=== PATIENT | female | born 1940 | race Caucasian/White ===

== ENCOUNTER 2021-01-09 21:08 | Inpatient (IN) | payer MEDICARE ==
[~2021-01-09] VITALS: Ht 167.6 cm; Wt 77.1 kg
--- NOTE | 2021-01-09 21:30 | NUR ---
Pt bibra c/o rt shoulder and rt lower back pain when she breathes in or moves. Pt aaox4 breathing evenly, but painful on expiration. Pt states that she fell today, but "I fall all the time." Upon assessment, skin is warm and dry, but small abrasion noted on left forearm. Pt attached to monitor and pox. Pt given blanket and call light within reach. DIRECTOR RECREATION at bedside
[2021-01-09] MEDS ORDERED: MORPHINE SULFATE INJ 4 MG/ML DISP.SYRIN ONE (21:56)
[2021-01-09] MEDS ORDERED: ONDANSETRON HCL/PF 4 MG/2 ML VIAL ONE (21:56)
[2021-01-09] MEDS ORDERED: ONDANSETRON HCL/PF 4 MG/2 ML VIAL IV ONE (22:00)
[2021-01-09] MEDS ORDERED: MORPHINE SULFATE INJ 2 MG/ML DISP.SYRIN IV ONE (22:00)
[2021-01-09] MEDS ORDERED: IV NS 0.9% 500 ML BAG IV ONE (22:00)
--- NOTE | 2021-01-09 22:15 | NUR ---
blood obtained and sent to lab
--- NOTE | 2021-01-09 22:40 | NUR ---
pt placed on 2L o2 for comfort
[2021-01-09 23:32] LABS: BASOPHILS # (AUTO) 0.2 /CMM (0.0-0.2); BASOPHILS % (AUTO) 1.5 % (0.0-2.0); HEMATOCRIT 41 % (33-45); HEMOGLOBIN 13.7 g/dL (11.5-14.8); LYMPHOCYTES # (AUTO) 0.6 /CMM (0.8-4.8); LYMPHOCYTES % (AUTO) 4.9 % (20.0-44.0); MEAN CORPUSCULAR HGB CONC 33 g/dl (31.0-36.0); MEAN CORPUSCULAR VOLUME 89 fL (82-100); MONOCYTES # (AUTO) 0.8 /CMM (0.1-1.30); MONOCYTES % (AUTO) 6.4 % (2.0-12.0); NEUTROPHILS # (AUTO) 10.6 /CMM (1.8-8.9); NEUTROPHILS % (AUTO) 87.2 % (43.0-81.0); PLATELET COUNT (AUTO) 197 /CMM (150-450); RED BLOOD CELL COUNT(AUTO) 4.61 MIL/uL (4.0-5.2); WHITE BLOOD COUNT (AUTO) 12.2 K/uL (4.3-11.0)
[2021-01-09 23:49] LABS: ALANINE AMINOTRANSFERASE 15 U/L (12-78); ALBUMIN 3.7 g/dL (3.4-5.0); ALKALINE PHOSPHATASE 85 U/L (46-116); ASPARTATE AMINOTRANSFERASE 13 U/L (15-37); BILIRUBIN,DIRECT 0.3 mg/dL (0.0-0.2); BILIRUBIN,TOTAL 1.1 mg/dL (0.2-1.0); CARBON DIOXIDE 27 mmol/L (21-32); CHLORIDE 98 mmol/L (98-107); GLUCOSE 177 mg/dL (74-106); POTASSIUM 3.9 mmol/L (3.5-5.1); SODIUM SERUM 136 mmol/L (136-145); TOTAL PROTEIN, SERUM 8.1 g/dL (6.4-8.2); UREA NITROGEN, BLOOD 24 mg/dL (7-18)
[2021-01-10] MEDS ORDERED: CEFTRIAXONE 1GM BAG (ER ONLY) 1 GM/50 ML PIGGYBACK IV ONE ×2
[2021-01-10] MEDS ORDERED: AZITHROMYCIN 500 MG in IV D5W 250 ML IV ONE ×2
[2021-01-10] MEDS ORDERED: CEFTRIAXONE 1GM BAG (ER ONLY) 50 ML IV ONE (00:06)
[2021-01-10] MEDS ORDERED: AZITHROMYCIN 500 MG VIAL ONE (00:06)
--- NOTE | 2021-01-10 00:57 | NUR ---
urine sent to lab
--- NOTE | 2021-01-10 01:00 | NUR ---
us at bedside
[2021-01-10] MEDS ORDERED: IV NS 0.9% 250 ML IV ONE (01:19)
[2021-01-10] MEDS ORDERED: IOHEXOL-350 100 ML VIAL IV ONE (01:19)
[2021-01-10 01:31] LABS: BILIRUBIN,URINE NEGATIVE (NEGATIVE); COLOR,URINE YELLOW (YELLOW); LEUKOCYTE ESTERASE ,URINE NEGATIVE (NEGATIVE); NITRITE, URINE NEGATIVE (NEGATIVE); PROTEIN,URINE 30 mg/dl (NEGATIVE); UGLUCOSE NEGATIVE (NEGATIVE); UROBILINOGEN,URINE 0.2 EU/dL (0.2)
[2021-01-10 01:54] LABS: RBC,URINE 0-2 /HPF (0-2); WBC,URINE 0-2 /HPF (0-3)
[2021-01-10 01:55] LABS: BACTERIA,URINE None seen /HPF (None Seen); CALCIUM OXALATE CRYSTALS,UR Many /HPF (None Seen); SQUAMOUS EPITHELIAL CELL,UR Few /HPF (None Seen)
[2021-01-10] MEDS ORDERED: ENOXAPARIN SODIUM 80 MG/0.8 ML DISP.SYRIN SQ SCH (03:00)
--- NOTE | 2021-01-10 03:12 | NUR ---
[facility]
[2021-01-10] MEDS ORDERED: ENOXAPARIN SODIUM 80 MG/0.8 ML DISP.SYRIN SQ ONE (03:13)
--- NOTE | 2021-01-10 03:20 | NUR ---
ANGIE CARRERA TALKING TO DR. CASTELLON REGARDING PT ADMISSION.
--- NOTE | 2021-01-10 03:26 | NUR ---
attempted to give report. RN will call back
--- NOTE | 2021-01-10 03:30 | NUR ---
RN NOTES RECEIVED ER ADMISSION REPORT FROM MARC[facility], ALL PERTINENT ADMISSION INFO REGARDING PT NOTED. WILL WAIT FOR PT TO BE TRANSFERRED TO UNIT AND ADDRESS NEEDS ACCORDINGLY. SECOND SHIFT SUPERVISOR MADE AWARE.
--- NOTE | 2021-01-10 03:35 | NUR ---
gave report to ASHLYN sosa for viral
[2021-01-10] MEDS ORDERED: MAGNESIUM HYDROXIDE 30 ML UDC PO PRN (04:00)
[2021-01-10] MEDS ORDERED: MAG HYDROX/AL HYDROX/SIMETH 30 ML UDC PO PRN (04:00)
[2021-01-10] MEDS ORDERED: Z GUARD REMEDY 2 OZ OINT TP PRN (04:00)
[2021-01-10] MEDS ORDERED: ZOLPIDEM TARTRATE 5 MG TABLET PO PRN (04:00)
[2021-01-10] MEDS ORDERED: ACETAMINOPHEN 325 MG TABLET PO PRN (04:00)
[2021-01-10] MEDS ORDERED: ONDANSETRON HCL/PF 4 MG/2 ML VIAL IVP PRN (04:00)
--- NOTE | 2021-01-10 04:05 | NUR ---
rocephin 0000 given at 0026 and zithromax 0000 given at 0101
--- NOTE | 2021-01-10 04:35 | NUR ---
RN NOTES RECEIVED PT FROM ER VIA AMY ACCOMPANIED BY 2 ER STAFF AND TRANSFERRED TO BED VIA 2 PERSON ASSIST. PT IS ALERT AND ORIENTED X4. PT ON 2L OF 02 VIA NC WITH RESPIRATIONS EVEN AND UNLABORED. COMPREHENSIVE PHYSICAL ASSESSMENT AND PATIENT CARE DONE. CALL LIGHT WITHIN REACH, SAFETY MEASURES AND ISOLATION PRECAUTION IN PLACE, WILL CONTINUE MONITOR AND ASSESS THROUGHOUT THE SHIFT. WILL CARRY OUT MD ORDERS ACCORDINGLY.
--- NOTE | 2021-01-10 04:40 | NUR ---
LAB CALLED REGARDING NEGATIVE COVID RESULT.
--- NOTE | 2021-01-10 05:00 | NUR ---
RN NOTES PER PATIENT CODE STATUS IS DNR/DNI; RN TRIED TO CHECK IF PATIENT CAN PROVIDE COPY OF POLST. PATIENT SAID SHE HAS A COPY IN HER HOUSE BUT NOT SURE IF SOMEONE CAN BRING OR SEND A COPY IN THE HOSPITAL. LINE TENDER FLAKEBOARD MADE AWARE. WILL ENDORSE TO AM SHIFT TO FOLLOW UP WITH MD ABOUT CODE STATUS.
[2021-01-10 05:01] VITALS: BP 126/76
[2021-01-10] MEDS: HYDROCODONE/APAP 5/325MG TABLET PO PRN ×3 (05:06→23:36)
[2021-01-10 06:34] LABS: BASOPHILS % (AUTO) 0.3 % (0.0-2.0); EOSINOPHILS % (AUTO) 0.4 % (0.0-6.0); HEMATOCRIT 37 % (33-45); HEMOGLOBIN 12.5 g/dL (11.5-14.8); LYMPHOCYTES # (AUTO) 1.1 /CMM (0.8-4.8); LYMPHOCYTES % (AUTO) 9.6 % (20.0-44.0); MEAN CORPUSCULAR HGB CONC 34 g/dl (31.0-36.0); MEAN CORPUSCULAR VOLUME 88 fL (82-100); MONOCYTES # (AUTO) 1.1 /CMM (0.1-1.30); MONOCYTES % (AUTO) 9.8 % (2.0-12.0); NEUTROPHILS # (AUTO) 8.9 /CMM (1.8-8.9); NEUTROPHILS % (AUTO) 79.9 % (43.0-81.0); PLATELET COUNT (AUTO) 166 /CMM (150-450); WHITE BLOOD COUNT (AUTO) 11.2 K/uL (4.3-11.0)
--- NOTE | 2021-01-10 06:45 | NUR ---
RN CLOSING NOTE: PATIENT REMAINS IN ROOM IN NO SIGNS OF RESPIRATORY DISTRESS, PATIENT STILL ON 2L OF 02 VIA NC;TOLERATING WELL SATURATING @ >95% SP02. SAFETY MEASURES IMPLEMENTED, BED IN LOWEST POSITION, LOCKED, SIDE RAILS UP, CALL LIGHT WITHIN REACH. ALL NEEDS AND ORDERS ADDRESSED DURING THE SHIFT. IV ACCESS MAINTAINED INTACT, SECURED AND FLUSHING WELL. ALL DUE MEDS GIVEN ORDERED & SCHEDULED ; PATIENT TOLERATED WELL. PATIENT KEPT CLEAN AND COMFORTABLE WITHIN THE SHIFT. PATIENT ENDORSED TO INCOMING SHIFT RN WITH STABLE VITAL SIGN AND FOR CONTINUITY OF CARE, WILL ALSO ADVISE AM SHIFT RN TO TOUCH BASE WITH MD TO REGARDING CODE STATUS; PER PT SHE WANTS DNR BUT COPY OF POLST IS AT HOME. AM PREDATORY ANIMAL HUNTER MADE AWARE.
[2021-01-10 06:53] LABS: CALCIUM, SERUM 9.5 mg/dL (8.5-10.1); CREATININE 0.9 mg/dL (0.6-1.3); MAGNESIUM 2.1 mg/dL (1.8-2.4); PHOSPHORUS 3.4 mg/dL (2.5-4.9); POTASSIUM 4.1 mmol/L (3.5-5.1)
[2021-01-10 08:00] VITALS: BP 115/77
--- NOTE | 2021-01-10 08:00 | NUR ---
RN Note: Pt received AAO X3. Verbally responsive. Ambulatory with walker with minimal assist. C/O rt lower back pain 4/10, able to tolerate, refused to take pain relieve med at this time. Denies SOB at rest. Encourage Pt to use call light for assistance. Call light within reach. Continue to monitor.
[2021-01-10 12:00] VITALS: BP 125/67
[2021-01-10 16:00] VITALS: BP 141/70
[2021-01-10] MEDS: ENOXAPARIN SODIUM 80 MG/0.8 ML DISP.SYRIN SQ SCH (17:58)
--- NOTE | 2021-01-10 18:28 | NUR ---
RN Note: No significant changes noted during shift. Continue to monitor closely. Pt does not remember home meds. Called [facility] X 2 given by number, unable to reach. Will F/U.
--- NOTE | 2021-01-10 19:10 | NUR ---
RECEIVED PT ON BED AWAKE A/O X4 ABLE TO VERBALIZED NEEDS ON ROOM AIR TOLERATING WELL STILL COMPLAINING OF BACK PAIN CURRENTLY PAIN LELVL IS 3 PER PT STILL TOLERATING AND WILL ASK PAIN MEDS IF SHE NEEDS IT, TELE MONITOR READS SINUS RHYTHM 80'S BED ON LOWEST POSITION AND LOCKED SIDE RAILS UP X 2 CALL LIGHT WITHIN REACH WILL CONT TO MONITOR
[2021-01-10 20:00] VITALS: BP 130/65
--- NOTE | 2021-01-10 20:00 | NUR ---
telecom assistant notes RECEIVED PTS IN BED AWAKE ALERT AND RESPONSIVE NO S/S OF RESPIRATORY DISTRESS, PATIENT STILL ON 3L OF 02 VIA NC;TOLERATING WELL SATURATING @ 95% SP02. SAFETY MEASURES IMPLEMENTED, BED IN LOWEST POSITION, LOCKED, SIDE RAILS UP, CALL LIGHT WITHIN REACH. ALL NEEDS ATTENDED TOO .ALL DUE MEDS GIVEN ORDERED , IV ACCESS MAINTAINED INTACT, SECURED AND FLUSHING WELL. PATIENT TOLERATED WELL. PATIENT KEPT CLEAN AND COMFORTABLE WITHIN THE SHIFT. WITH STABLE VITAL SIGN AT THIS TIME ,WILL CONTINUE TO MONITOR PTS.
[2021-01-10] MEDS: MORPHINE SULFATE INJ 2 MG/ML DISP.SYRIN IV PRN (20:06)
[2021-01-11] VITALS: BP 144/89
[2021-01-11 04:00] VITALS: BP 135/77
--- NOTE | 2021-01-11 07:30 | NUR ---
SEISMIC PROSPECTING SUPERVISOR NOTE RECEIVED PTS IN BED AWAKE ALERT AND RESPONSIVE NO S/S OF RESPIRATORY DISTRESS, PATIENT CURRENTLY ON ROOM AIR, REFUSING NASAL CANNULA.;TOLERATING WELL SATURATING @ 96% SP02. SAFETY MEASURES IMPLEMENTED, BED IN LOWEST POSITION, LOCKED, SIDE RAILS UP, CALL LIGHT WITHIN REACH. IV ACCESS MAINTAINED INTACT, SECURED AND FLUSHING WELL. WILL CONTINUE TO MONITOR AND PROVIDE TREATMENT.
[2021-01-11 08:00] VITALS: BP 125/70
[2021-01-11] MEDS: ENOXAPARIN SODIUM 80 MG/0.8 ML DISP.SYRIN SQ SCH ×2 (08:04→20:37)
[2021-01-11] MEDS: MORPHINE SULFATE INJ 2 MG/ML DISP.SYRIN IV PRN ×2 (08:05→19:47)
[2021-01-11] MEDS ORDERED: OMEP40CA13 PO (09:26)
[2021-01-11] MEDS ORDERED: METF-442 PO (09:26)
[2021-01-11] MEDS ORDERED: GABA-536 PO (09:26)
[2021-01-11] MEDS ORDERED: BUPR-96 PO (09:26)
[2021-01-11] MEDS ORDERED: ATOR40TA PO (09:26)
[2021-01-11] MEDS ORDERED: SERT100T PO (09:26)
[2021-01-11 12:00] VITALS: BP 119/69
[2021-01-11 16:00] VITALS: BP_SYST 119; BP_SYST 127; BP_DIAS 69; BP_DIAS 74
[2021-01-11 20:00] VITALS: BP 144/48
--- NOTE | 2021-01-11 20:00 | NUR ---
RN NOTES RECEIVED PT IN BED ALERT AND ORIENTED X4. TOLERATING ROOM AIR. SINUS RHYTHM ON TELE MONITOR WITH HR OF 80S. DENIES SOB. PT COMPLAINED OF SEVERE PAIN ON RIGHT SIDE SIDE AND BACK ON EXERTION. MORPHINE GIVEN ORDERED. IV ON LAC PATENT AND INTACT, FLUSHES WELL. ALL SAFETY MEASURES IMPLEMENTED PER PROTOCOL. CALL LIGHT WITHIN REACH BED LOCKED IN LOWEST POSITION. WILL CONTINUE TO MONITOR.
--- NOTE | 2021-01-11 20:15 | NUR ---
RN NOTES PT SAYS SHE FEELS GASTRIC REFLUX AND USUALLY TAKE PEPCID AT HOME. NOTIFIED GREASE AND TALLOW PUMPER MD DR CASTELLON, ORDERED PEPCID PO 20MG X1, ORDERED NOTED AND CARRIED OUT.
[2021-01-11] MEDS ORDERED: FAMOTIDINE (20 MG) 20 MG TABLET PO ONE (20:30)
[2021-01-12] VITALS: BP 130/66
--- NOTE | 2021-01-12 00:34 | NUR ---
RN NOTE PT WITH ADVANCED DIRECTIVE SAYING DNR, VERIFIED WITH PATIENT. PT WANTS DNR/DNI. NOTIFIED DR. CASTELLON, CODE STATUS CHANGE TO DNR/DNI NOTED AND CARRIED OUT.
[2021-01-12] MEDS: MORPHINE SULFATE INJ 2 MG/ML DISP.SYRIN IV PRN (02:56)
[2021-01-12 04:00] VITALS: BP 127/72
--- NOTE | 2021-01-12 06:39 | NUR ---
RN NOTES PT REMAIN STABLE, NO SIGNIFICANT CHANGES. COMPLAINS OF PAIN ONLY ON EXERTION OR POSITIONING. SR ON TELE MONITOR. REMAIN AFEBRILE. PT ABLE TO MAKE NEEDS KNOWN. ASSISTED TO RESTROOM. ALL SAFETY MEASURES MAINTAINED. WILL ENDORSE TO NEXT SHIFT NURSE FOR JOSE.
--- NOTE | 2021-01-12 07:30 | NUR ---
HEALTH AND SAFETY DIRECTOR AM NOTES PT IN BED, AAO X 4, ABLE TO VERBALIZE NEEDS, ON ROOM AIR, DENIES SOB, RESPIRATION UNLABORED, SINUS RHYTHM ON MONITOR, DENIES CHEST PAIN/DISCOMFORT, REFUSING NASAL CANNULA. LEFT AC 20 IV ACCESS FLUSHES WELL, SITE CLEAR. AMBULATES WITH ASSIST, CCHO 6O GM DIET, SAFETY MEASURES IMPLEMENTED, BED IN LOWEST POSITION, LOCKED, SIDE RAILS UP, CALL LIGHT WITHIN REACH. POC DISCUSSED WITH PATIENT VERBALIZED UNDERSTANDING. WILL CONTINUE TO MONITOR AND PROVIDE TREATMENT.
[2021-01-12 08:00] VITALS: BP 115/57
[2021-01-12] MEDS: ENOXAPARIN SODIUM 80 MG/0.8 ML DISP.SYRIN SQ SCH (08:27)
[2021-01-12] MEDS ORDERED: SERTRALINE HCL 50 MG TABLET PO SCH (09:30)
[2021-01-12] MEDS ORDERED: BUPROPION XL 150 MG TAB.ER.24 PO SCH (09:30)
--- NOTE | 2021-01-12 09:30 | NUR ---
RN NOTES DUE MEDS GIVEN
[2021-01-12 12:02] VITALS: BP 124/67
[2021-01-12] MEDS ORDERED: APIX5TAB PO (12:59)
[2021-01-12] MEDS: GABAPENTIN 400 MG CAPSULE PO SCH ×2 (13:04→17:02)
[2021-01-12 16:00] VITALS: BP 119/63
[2021-01-12] MEDS ORDERED: METFORMIN 500 MG TABLET PO SCH (17:00)
[2021-01-12] MEDS ORDERED: ATORVASTATIN 40 MG TABLET PO SCH (18:00)
--- NOTE | 2021-01-12 18:20 | NUR ---
RN NOTES PATIENT DISCHARGED TO BE DISCHARGE TO [facility] TODAY PER MD IN STABLE CONDITION. PROVIDED DC INSTRUCTIONS, MED RECON /PRESCRIPTION LIST AND HEALTH TEACHINGS. PATIENT TO FOLLOW UP WITH PCP IN 1 WEEK OR PER FACILITY PROTOCOL, IV ACCESS TO BE REMOVED, ALL BELONGINGS CHECKED AND RETURNED. ALL PAPERWORKS SIGNED. VERBALIZED UNDERSTANDING TO ALL INSTRUCTIONS GIVEN. TO BE PICKED UP BY AMBULANCE CREW TO TRANSPORT TO FACILITY AT 2000. ALL NEEDS MET. WILL ENDORSE TO NEXT SHIFT FOR JOSE. SN TRIED TO GIVE REPORT TO [facility] EARLIER WITH 2 ATTEMPTS, PER FACILITY STAFF TO CALL BACK LATER AT 0730 FOR REPORT SINCE PATIENT IS GONNA BE PICKED UP AT 2000.
--- NOTE | 2021-01-12 19:00 | NUR ---
RN OPENING NOTE RECEIVED PATIENT IN BED RESTING ALERT ORIENTED X4 VERBALLY RESPONSIVE ON ROOM AIR O2:95% NO SOB NOT ACUTE DISTRESS NOTED,AMBULATORY WITH ASSIST,CONTINENT TO BOWEL/BLADDER,IV SITE IS ON LEFT AC INTACT PATENT,PATIENT WILL DISCHARGE TO [facility] CALL LIGHT WITHIN REACH, SAFETY MEASURE IMPLEMENT CONTINUE TO MONITOR.
--- NOTE | 2021-01-12 19:35 | NUR ---
RN NOTE REMOVED IV LINE NO BLEEDING NO ACUTE DISTRESS,ALSO GAVE REPORT TO FERNANDA AT [facility],CONTINUE TO MONITOR.
[2021-01-12 20:00] VITALS: BP 135/69
[2021-01-12] MEDS ORDERED: APIXABAN 5 MG TABLET PO SCH (21:00)
--- NOTE | 2021-01-12 21:45 | NUR ---
RN CLOSING NOTE PATIENT DISCHARGE TO [facility] IN STABLE CONDITION,WITH ALL BELONGINGS PATIENT IS ALERT ORIENTED X4 VERBALLY RESPONSIVE NO SOB NOT ACUTE DISTRESS NOTED,ON ROOM AIR 96% ALL DUE MEDS GIVEN BEFORE DISCHARGE,PATIENT LEFT HOSPITAL WITH 2 EMT [facility],AFTER SHE SIGNED ALL DISCHARGE PAPERS.
[2021-01-13] MEDS ORDERED: PANTOPRAZOLE 40 MG TABLET.DR PO SCH (07:30)
[2021-01-19] MEDS ORDERED: APIXABAN 5 MG TABLET PO SCH (21:00)
== END 2021-01-12 21:45 | DRG 176 ==
LOC: ER 21:11 → TELE1 01-10 02:49 → MEDSG1 01-12 14:52
PROVIDERS: ADMIT Nurse Practitioner Acute Care; ATTEND Nurse Practitioner Acute Care
DX: I26.99 Other pulmonary embolism without acute cor pulmonale (principal); J98.11 Atelectasis; E11.9 Type 2 diabetes mellitus without complications; Z87.891 Personal history of nicotine dependence; E78.5 Hyperlipidemia, unspecified; D72.829 Elevated white blood cell count, unspecified; Z20.822 Contact with and (suspected) exposure to COVID-19; M54.9 Dorsalgia, unspecified; R53.1 Weakness; N28.1 Cyst of kidney, acquired; Z79.84 Long term (current) use of oral hypoglycemic drugs
CPT/HCPCS: 36415; 71045-TC; 76770-TC; 80048-TC; 80061-TC; 80076-TC; 81001; 83605-TC; 83735-TC; 84100-TC; 84484-TC; 85025-TC; 85303; 85730-TC; 87040-TC; 87081-TC; 93307-TC; 93970-TC; 97112-TC; 97116-TC; 97530-TC; G0378; J0456; J0696; J1650; J2270; J2405; J7040; J7050; J7060; Q9967; U0003

== ENCOUNTER 2024-04-16 12:37 | Inpatient (IN) | payer MEDICARE ==
[~2024-04-16] VITALS: Ht 167.6 cm; Wt 74.4 kg
[2024-04-16] VITALS: BP 124/58; TEMP 98.2; O2SAT 96
[~2024-04-16 12:37] MED LIST: APIX5TAB PO; ATOR40TA PO; BUPR-96 PO; GABA-536 PO; METF-442 PO; OMEP40CA21 PO; SERT100T PO
[2024-04-16 13:06] LABS: BASOPHILS # (AUTO) 0.1 K/uL (0.0-0.2); BASOPHILS % (AUTO) 0.8 % (0.0-2.0); EOSINOPHILS # (AUTO) 0.1 K/uL (0.0-0.7); EOSINOPHILS % (AUTO) 1.3 % (0.0-6.0); HEMATOCRIT 29 % (33-45); HEMOGLOBIN 9.8 g/dL (11.5-14.8); LYMPHOCYTES # (AUTO) 0.6 K/uL (0.8-4.8); LYMPHOCYTES % (AUTO) 6.6 % (20.0-44.0); MEAN CORPUSCULAR HEMOGLOBIN 26 PG (26.0-33.0); MEAN CORPUSCULAR HGB CONC 33 g/dl (31.0-36.0); MEAN CORPUSCULAR VOLUME 79 fL (82-100); MONOCYTES # (AUTO) 0.5 K/uL (0.1-1.30); MONOCYTES % (AUTO) 5.5 % (2.0-12.0); NEUTROPHILS # (AUTO) 7.7 K/uL (1.8-8.9); NEUTROPHILS % (AUTO) 85.8 % (43.0-81.0); PLATELET COUNT (AUTO) 167 K/uL (150-450); RED BLOOD CELL COUNT(AUTO) 3.73 MIL/uL (4.0-5.2); RED CELL DISTRIBUTION WIDTH 13.5 % (11.5-15.0)
[2024-04-16] MEDS ORDERED: ACETAMINOPHEN ES 500 MG TABLET ONE (13:08)
[2024-04-16] MEDS: ACETAMINOPHEN ES 500 MG TABLET PO ONE (13:10)
[2024-04-16 13:13] LABS: CALCIUM, SERUM 9.4 mg/dL (8.5-10.1); CARBON DIOXIDE 24 mmol/L (21-32); CHLORIDE 102 mmol/L (98-107); CREATININE 1.1 mg/dL (0.6-1.3); GLUCOSE 203 mg/dL (74-106); POTASSIUM 3.3 mmol/L (3.5-5.1); SODIUM SERUM 134 mmol/L (136-145); UREA NITROGEN, BLOOD 32 mg/dL (7-18)
[2024-04-16 13:20] LABS: ALANINE AMINOTRANSFERASE 17 U/L (12-78); ALKALINE PHOSPHATASE 84 U/L (46-116); ASPARTATE AMINOTRANSFERASE 13 U/L (15-37); BILIRUBIN,DIRECT 0.2 mg/dL (0.0-0.2); BILIRUBIN,TOTAL 0.8 mg/dL (0.2-1.0); TOTAL PROTEIN, SERUM 7.1 g/dL (6.4-8.2)
[2024-04-16] MEDS: ENOXAPARIN SODIUM 60 MG/0.6 ML DISP.SYRIN SQ ONE (13:30)
[2024-04-16] MEDS ORDERED: ENOXAPARIN SODIUM 80 MG/0.8 ML DISP.SYRIN SQ ONE (13:30)
[2024-04-16] MEDS ORDERED: METF-440 PO (13:33)
[2024-04-16] MEDS ORDERED: IOHEXOL-350 100 ML VIAL IV ONE (13:49)
[2024-04-16] MEDS ORDERED: IV NS 0.9% 250 ML IV ONE (13:49)
[2024-04-16] MEDS ORDERED: MAG HYDROX/AL HYDROX/SIMETH 30 ML UDC PO PRN (15:00)
[2024-04-16] MEDS ORDERED: ACETAMINOPHEN 325 MG TABLET PO PRN (15:00)
[2024-04-16] MEDS ORDERED: Z GUARD REMEDY 4 OZ OINT TP PRN (15:00)
[2024-04-16] MEDS ORDERED: MAGNESIUM HYDROXIDE 30 ML UDC PO PRN (15:00)
[2024-04-16] MEDS ORDERED: ONDANSETRON HCL/PF 4 MG/2 ML VIAL IVP PRN (15:00)
[2024-04-16 16:12] VITALS: BP 132/72; TEMP 97.7; O2SAT 96
[2024-04-16 18:55] LABS: THYROID STIMULATING HORMONE 1.78 uIU/mL (0.358-3.74)
[2024-04-16 20:00] VITALS: BP 125/70; TEMP 97.9; O2SAT 97
[2024-04-16] MEDS: ENOXAPARIN SODIUM 80 MG/0.8 ML DISP.SYRIN SQ SCH (21:00)
[2024-04-16] MEDS: IV NS 0.9% 1,000 ML IV PRN (21:06)
[2024-04-16] MEDS: GABAPENTIN 400 MG CAPSULE PO SCH (21:09)
[2024-04-16] MEDS: HYDROCODONE/APAP 5/325MG TABLET PO PRN (22:18)
[2024-04-17] VITALS: BP_SYST 124; BP_SYST 125; BP_DIAS 58; TEMP 98.2; O2SAT 96
[2024-04-17 04:00] VITALS: BP 125/62; TEMP 98.1; O2SAT 95
[2024-04-17 07:41] LABS: BASOPHILS % (AUTO) 0.7 % (0.0-2.0); EOSINOPHILS # (AUTO) 0.3 K/uL (0.0-0.7); EOSINOPHILS % (AUTO) 4.5 % (0.0-6.0); HEMATOCRIT 26 % (33-45); HEMOGLOBIN 8.7 g/dL (11.5-14.8); LYMPHOCYTES % (AUTO) 17.2 % (20.0-44.0); MEAN CORPUSCULAR HEMOGLOBIN 27 PG (26.0-33.0); MEAN CORPUSCULAR HGB CONC 34 g/dl (31.0-36.0); MEAN CORPUSCULAR VOLUME 79 fL (82-100); MONOCYTES # (AUTO) 0.4 K/uL (0.1-1.30); MONOCYTES % (AUTO) 7.3 % (2.0-12.0); NEUTROPHILS # (AUTO) 3.9 K/uL (1.8-8.9); NEUTROPHILS % (AUTO) 70.3 % (43.0-81.0); PLATELET COUNT (AUTO) 179 K/uL (150-450); RED BLOOD CELL COUNT(AUTO) 3.25 MIL/uL (4.0-5.2); RED CELL DISTRIBUTION WIDTH 13.4 % (11.5-15.0); RETICULOCYTE COUNT 1.2 % (0.6-2.5); WHITE BLOOD COUNT (AUTO) 5.5 K/uL (4.3-11.0)
[2024-04-17 08:00] VITALS: BP 112/71; TEMP 97.9; O2SAT 94
[2024-04-17 08:21] LABS: CALCIUM, SERUM 8.6 mg/dL (8.5-10.1); CARBON DIOXIDE 25 mmol/L (21-32); CHLORIDE 107 mmol/L (98-107); CREATININE 0.9 mg/dL (0.6-1.3); GLUCOSE 147 mg/dL (74-106); MAGNESIUM 1.5 mg/dL (1.8-2.4); PHOSPHORUS 3.4 mg/dL (2.5-4.9); POTASSIUM 3.3 mmol/L (3.5-5.1); SODIUM SERUM 143 mmol/L (136-145); UREA NITROGEN, BLOOD 24 mg/dL (7-18)
[2024-04-17 08:31] LABS: IRON, SERUM 19 ug/dl (50-175); TOTAL IRON BINDING CAPACITY 204 ug/dl (250-450)
[2024-04-17] MEDS: ATORVASTATIN 40 MG TABLET PO SCH (08:52)
[2024-04-17] MEDS: PANTOPRAZOLE 40 MG TABLET.DR PO SCH (08:52)
[2024-04-17] MEDS: SERTRALINE HCL 50 MG TABLET PO SCH (08:53)
[2024-04-17] MEDS ORDERED: METFORMIN 500 MG TABLET PO SCH (09:00)
[2024-04-17 09:34] LABS: CHOLESTEROL 134 mg/dL (<200); FERRITIN 95 ng/mL (8-388); HDL CHOLESTEROL 47 mg/dL (40-60); LDL 68 mg/dL (0-99); TRIGLYCERIDES 93 mg/dL (30-150)
[2024-04-17] MEDS ORDERED: IPRATROPIUM NEB FS 0.5 MG/2.5 ML AMPUL.NEB NEB PRN (10:00)
[2024-04-17] MEDS ORDERED: ALBUTEROL HALF STRENGTH 1.25 MG/3 ML VIAL.NEB NEB PRN (10:00)
[2024-04-17] MEDS ORDERED: IV NS 0.9% 250 ML IV ONE (10:41)
[2024-04-17] MEDS ORDERED: IOHEXOL-300 100 ML VIAL IV ONE (10:41)
[2024-04-17 12:00] VITALS: BP 141/72; TEMP 97.6; O2SAT 94
[2024-04-17] MEDS: MAGNESIUM OXIDE 400 MG TABLET PO ONE (12:04)
[2024-04-17] MEDS: POTASSIUM CHLORIDE 20 MEQ TAB.PRT.SR PO SCH (12:05)
[2024-04-17 16:00] VITALS: BP 122/66; TEMP 97.8; O2SAT 95
[2024-04-17] MEDS: APIXABAN 5 MG TABLET PO SCH (18:00)
[2024-04-17] MEDS: SOD FERRIC GLUC 125 MG in IV NS 0.9% 100 ML IV SCH (18:03)
[2024-04-17 20:00] VITALS: BP 122/72; TEMP 97.7; O2SAT 94
[2024-04-17] MEDS: MORPHINE SULFATE INJ 2 MG/ML DISP.SYRIN IV PRN (22:56)
[2024-04-18] VITALS: BP 122/65; TEMP 97.7; O2SAT 99
[2024-04-18 04:00] VITALS: BP 122/75; TEMP 97.7; O2SAT 95
[2024-04-18 08:00] VITALS: BP 120/63; TEMP 97.3; O2SAT 95
[2024-04-18 08:08] LABS: FOLIC ACID 11.7 ng/mL (>3.0); FREE KAPPA LT CHAINS SERUM 20.2 mg/L (3.3-19.4); IMMUNOGLOBULIN A, SERUM 125 mg/dL (64-422); IMMUNOGLOBULIN G, SERUM 656 mg/dL (586-1602); IMMUNOGLOBULIN M, SERUM 69 mg/dL (26-217); KAPPA/LAMBDA RATIO SERUM 1.06 (0.26-1.65)
[2024-04-18 08:15] LABS: WHITE BLOOD COUNT (AUTO) 5.5 K/uL (4.3-11.0)
[2024-04-18 08:19] LABS: BASOPHILS % (AUTO) 0.6 % (0.0-2.0); EOSINOPHILS # (AUTO) 0.3 K/uL (0.0-0.7); EOSINOPHILS % (AUTO) 4.9 % (0.0-6.0); HEMATOCRIT 27 % (33-45); HEMOGLOBIN 8.7 g/dL (11.5-14.8); LYMPHOCYTES # (AUTO) 0.9 K/uL (0.8-4.8); LYMPHOCYTES % (AUTO) 16.7 % (20.0-44.0); MEAN CORPUSCULAR HEMOGLOBIN 26 PG (26.0-33.0); MEAN CORPUSCULAR HGB CONC 33 g/dl (31.0-36.0); MEAN CORPUSCULAR VOLUME 79 fL (82-100); MONOCYTES # (AUTO) 0.4 K/uL (0.1-1.30); MONOCYTES % (AUTO) 7.5 % (2.0-12.0); NEUTROPHILS # (AUTO) 3.8 K/uL (1.8-8.9); NEUTROPHILS % (AUTO) 70.3 % (43.0-81.0); PLATELET COUNT (AUTO) 202 K/uL (150-450); RED BLOOD CELL COUNT(AUTO) 3.35 MIL/uL (4.0-5.2); RED CELL DISTRIBUTION WIDTH 13.7 % (11.5-15.0)
[2024-04-18 09:08] LABS: CALCIUM, SERUM 8.6 mg/dL (8.5-10.1); CARBON DIOXIDE 24 mmol/L (21-32); CHLORIDE 108 mmol/L (98-107); CREATININE 0.9 mg/dL (0.6-1.3); GLUCOSE 129 mg/dL (74-106); MAGNESIUM 1.7 mg/dL (1.8-2.4); POTASSIUM 3.7 mmol/L (3.5-5.1); SODIUM SERUM 141 mmol/L (136-145); UREA NITROGEN, BLOOD 20 mg/dL (7-18)
[2024-04-18 13:00] VITALS: BP 118/70; TEMP 97.5; O2SAT 96
[2024-04-18] MEDS ORDERED: GADOTERATE MEGLUMINE 10 MMOL/20 ML VIAL IV ONE (13:35)
[2024-04-18] MEDS: MAGNESIUM OXIDE 400 MG TABLET PO ONE (15:22)
[2024-04-18] MEDS ORDERED: APIX5TAB4 PO (15:56)
[2024-04-18] MEDS ORDERED: APIX5TAB PO (15:56)
[2024-04-18 16:02] VITALS: BP 127/63; TEMP 97.5; O2SAT 97
[2024-04-19 06:07] LABS: *SPE A/G RATIO 0.9 (0.7-1.7); *SPE ALBUMIN 2.6 g/dL (2.9-4.4); *SPE ALPHA-1-GLOBULIN 0.5 g/dL (0.0-0.4); *SPE M-SPIKE Not Observed g/dL (Not Observed); *SPE PROTEIN TOTAL 5.6 g/dL (6.0-8.5); *SPEGAMMA GLOBULIN 0.6 g/dL (0.4-1.8)
[2024-04-19] MEDS ORDERED: METFORMIN 500 MG TABLET PO SCH (09:00)
[2024-04-19 21:07] LABS: ANTITHROMBIN III ACTIVITY 98 % (75-135)
[2024-04-19 23:12] LABS: *CARD ANTI-CARDIOLIPIN AB IgG <9 GPL U/mL (0-14); *CARD ANTI-CARDIOLIPIN AB IgM <9 MPL U/mL (0-12)
== END 2024-04-18 18:47 | disposition home or self-care (01) | DRG 176 ==
LOC: ER 13:08 → MEDSG1 13:43 → TELE1 15:12 → MEDSG1 04-18 14:06
PROVIDERS: ADMIT Nurse Practitioner Acute Care; ATTEND Nurse Practitioner Acute Care
DX: I26.99 Other pulmonary embolism without acute cor pulmonale (principal); I82.412 Acute embolism and thrombosis of left femoral vein; I82.432 Acute embolism and thrombosis of left popliteal vein; I69.351 Hemiplegia and hemiparesis following cerebral infarction affecting right dominant side; D68.69 Other thrombophilia; K21.9 Gastro-esophageal reflux disease without esophagitis; E78.5 Hyperlipidemia, unspecified; E88.09 Other disorders of plasma-protein metabolism, not elsewhere classified; M79.7 Fibromyalgia; Z79.84 Long term (current) use of oral hypoglycemic drugs; Z88.2 Allergy status to sulfonamides; F32.A Depression, unspecified; Z86.711 Personal history of pulmonary embolism; E11.9 Type 2 diabetes mellitus without complications; D50.9 Iron deficiency anemia, unspecified; N28.1 Cyst of kidney, acquired; Z86.718 Personal history of other venous thrombosis and embolism
CPT/HCPCS: 36415; 71045-TC; 72197-TC; 74183; 80048-TC; 80061-TC; 80076-TC; 81240; 81241; 82378; 82607-TC; 82728-TC; 82784; 83090; 83540-TC; 83615-TC; 83690-TC; 83735-TC; 84100-TC; 84155; 84165; 84439-TC; 84443-TC; 84484-TC; 85025-TC; 85045-TC; 85300; 85303; 85613; 85670; 85705; 85732; 86147; 86334; 93307-TC; 93970-TC; 97112-TC; 97116-TC; 97530-TC; A4223; A9575; G0378; J1650; J2270; J2916; J7030; J7050; Q9967

== ENCOUNTER 2024-08-17 13:54 | Inpatient (IN) | payer MEDICARE, BC ==
[~2024-08-17] VITALS: Ht 165.1 cm; Wt 76.3 kg
[~2024-08-17 13:54] MED LIST changes: +APIX5TAB4 PO; -BUPR-96 PO; +METF-440 PO; -METF-442 PO
[2024-08-17 14:53] LABS: BASOPHILS % (AUTO) 0.6 % (0.0-2.0); EOSINOPHILS # (AUTO) 0.1 K/uL (0.0-0.7); EOSINOPHILS % (AUTO) 1.2 % (0.0-6.0); HEMATOCRIT 25 % (33-45); HEMOGLOBIN 7.9 g/dL (11.5-14.8); LYMPHOCYTES # (AUTO) 0.3 K/uL (0.8-4.8); LYMPHOCYTES % (AUTO) 5.1 % (20.0-44.0); MEAN CORPUSCULAR HEMOGLOBIN 23 PG (26.0-33.0); MEAN CORPUSCULAR HGB CONC 31 g/dl (31.0-36.0); MEAN CORPUSCULAR VOLUME 72 fL (82-100); MONOCYTES # (AUTO) 0.4 K/uL (0.1-1.30); MONOCYTES % (AUTO) 6.2 % (2.0-12.0); NEUTROPHILS # (AUTO) 5.1 K/uL (1.8-8.9); NEUTROPHILS % (AUTO) 86.9 % (43.0-81.0); PLATELET COUNT (AUTO) 143 K/uL (150-450); RED BLOOD CELL COUNT(AUTO) 3.51 MIL/uL (4.0-5.2); RED CELL DISTRIBUTION WIDTH 16.7 % (11.5-15.0); WHITE BLOOD COUNT (AUTO) 5.8 K/uL (4.3-11.0)
[2024-08-17] MEDS ORDERED: APIX5TAB PO (15:00)
[2024-08-17 15:02] LABS: CALCIUM, SERUM 9.2 mg/dL (8.5-10.1); CARBON DIOXIDE 24 mmol/L (21-32); CHLORIDE 103 mmol/L (98-107); CREATININE 1.4 mg/dL (0.6-1.3); GLUCOSE 261 mg/dL (74-106); POTASSIUM 3.9 mmol/L (3.5-5.1); SODIUM SERUM 139 mmol/L (136-145); UREA NITROGEN, BLOOD 27 mg/dL (7-18)
[2024-08-17 15:07] LABS: INR 1.05 (0.91-1.10); PARTIAL THROMBOPLASTIN TIME 24.1 SEC (24.3-34.3); PROTHROMBIN TIME 10.8 SECS (9.2-11.1)
[2024-08-17 15:17] LABS: ALANINE AMINOTRANSFERASE 14 U/L (12-78); ALBUMIN 4.1 g/dL (3.4-5.0); ALKALINE PHOSPHATASE 87 U/L (46-116); ASPARTATE AMINOTRANSFERASE 13 U/L (15-37); BILIRUBIN,DIRECT 0.1 mg/dL (0.0-0.2); BILIRUBIN,TOTAL 0.6 mg/dL (0.2-1.0); TOTAL PROTEIN, SERUM 7.2 g/dL (6.4-8.2)
[2024-08-17 15:54] LABS: ANISOCYTOSIS 1+; BASOPHILS % (MANUAL) 0 % (0.0-2.0); EOSINOPHILS % (MANUAL) 0 % (0-4); LYMPHOCYTES % (MANUAL) 5 % (16-48); MONOCYTES % (MANUAL) 5 % (0-11.0); NEUTROPHILS % (MANUAL) 90 (42-76); PLATELET ESTIMATE DECREASED
[2024-08-17 15:55] LABS: HYPOCHROMASIA 1+
[2024-08-17] MEDS ORDERED: ZOLPIDEM TARTRATE 5 MG TABLET PO PRN (16:00)
[2024-08-17] MEDS ORDERED: MAGNESIUM HYDROXIDE 30 ML UDC PO PRN (16:00)
[2024-08-17] MEDS ORDERED: MAG HYDROX/AL HYDROX/SIMETH 30 ML UDC PO PRN (16:00)
[2024-08-17] MEDS ORDERED: ACETAMINOPHEN 325 MG TABLET PO PRN (16:00)
[2024-08-17] MEDS ORDERED: DEXTROSE 50%-WATER 50 ML DISP.SYRIN IV PRN (16:30)
[2024-08-17] MEDS: GABAPENTIN 400 MG CAPSULE PO SCH (17:00)
[2024-08-17] MEDS: BLOOD SUGAR DIAGNOSTIC 1 EACH STRIP IN SCH (17:30)
[2024-08-17] MEDS: HYDROCORTISONE ACETATE 25 MG/SUPP.RECT SUPP.RECT RC SCH (19:00)
[2024-08-17 20:00] VITALS: BP 145/55; TEMP 98.2; O2SAT 99
[2024-08-17] MEDS: SERTRALINE HCL 50 MG TABLET PO SCH (21:10)
[2024-08-17] MEDS: PANTOPRAZOLE 40 MG VIAL IV SCH (21:10)
[2024-08-18] MEDS: IV NS 0.9% 1,000 ML IV PRN (00:53)
[2024-08-18 04:00] VITALS: BP 143/51; TEMP 98.5; O2SAT 97
[2024-08-18 08:00] VITALS: BP 145/40; TEMP 98.8; O2SAT 96
[2024-08-18] MEDS: INSULIN REGULAR, HUMAN 100 UNIT/ML 3 ML VIAL SQ PRN (08:29)
[2024-08-18] MEDS: ATORVASTATIN 40 MG TABLET PO SCH (08:37)
[2024-08-18] MEDS: Z GUARD REMEDY 4 OZ OINT TP PRN (10:31)
[2024-08-18] MEDS: TRAMADOL HCL 50 MG TABLET PO SCH (12:54)
[2024-08-18 14:47] LABS: BASOPHILS % (AUTO) 0.8 % (0.0-2.0); EOSINOPHILS # (AUTO) 0.2 K/uL (0.0-0.7); EOSINOPHILS % (AUTO) 5.5 % (0.0-6.0); HEMATOCRIT 23 % (33-45); HEMOGLOBIN 7.3 g/dL (11.5-14.8); LYMPHOCYTES # (AUTO) 0.6 K/uL (0.8-4.8); LYMPHOCYTES % (AUTO) 15.8 % (20.0-44.0); MEAN CORPUSCULAR HEMOGLOBIN 22 PG (26.0-33.0); MEAN CORPUSCULAR HGB CONC 31 g/dl (31.0-36.0); MEAN CORPUSCULAR VOLUME 70 fL (82-100); MONOCYTES # (AUTO) 0.4 K/uL (0.1-1.30); MONOCYTES % (AUTO) 11.3 % (2.0-12.0); NEUTROPHILS # (AUTO) 2.6 K/uL (1.8-8.9); NEUTROPHILS % (AUTO) 66.6 % (43.0-81.0); PLATELET COUNT (AUTO) 129 K/uL (150-450); RED BLOOD CELL COUNT(AUTO) 3.31 MIL/uL (4.0-5.2); RED CELL DISTRIBUTION WIDTH 16.1 % (11.5-15.0); WHITE BLOOD COUNT (AUTO) 3.8 K/uL (4.3-11.0)
[2024-08-18 15:22] LABS: OCCULT BLOOD STOOL NEGATIVE (NEGATIVE)
[2024-08-18 15:34] LABS: EOSINOPHILS % (MANUAL) 6 % (0-4); LYMPHOCYTES % (MANUAL) 15 % (16-48); MONOCYTES % (MANUAL) 11 % (0-11.0); NEUTROPHILS % (MANUAL) 68 (42-76)
[2024-08-18 15:35] LABS: ANISOCYTOSIS 1+; PLATELET ESTIMATE DECREASED
[2024-08-18 15:36] LABS: HYPOCHROMASIA 1+
[2024-08-18 16:26] VITALS: BP 119/80; TEMP 98; O2SAT 98
[2024-08-18 20:00] VITALS: BP 135/69; TEMP 97.2; O2SAT 98
[2024-08-18 20:47] LABS: BASOPHILS % (AUTO) 0.9 % (0.0-2.0); EOSINOPHILS # (AUTO) 0.2 K/uL (0.0-0.7); EOSINOPHILS % (AUTO) 6.3 % (0.0-6.0); HEMATOCRIT 23 % (33-45); HEMOGLOBIN 7.2 g/dL (11.5-14.8); LYMPHOCYTES # (AUTO) 0.7 K/uL (0.8-4.8); LYMPHOCYTES % (AUTO) 17.9 % (20.0-44.0); MEAN CORPUSCULAR HEMOGLOBIN 22 PG (26.0-33.0); MEAN CORPUSCULAR HGB CONC 31 g/dl (31.0-36.0); MEAN CORPUSCULAR VOLUME 71 fL (82-100); MONOCYTES # (AUTO) 0.5 K/uL (0.1-1.30); MONOCYTES % (AUTO) 12.3 % (2.0-12.0); NEUTROPHILS # (AUTO) 2.4 K/uL (1.8-8.9); NEUTROPHILS % (AUTO) 62.6 % (43.0-81.0); PLATELET COUNT (AUTO) 113 K/uL (150-450); RED BLOOD CELL COUNT(AUTO) 3.22 MIL/uL (4.0-5.2); RED CELL DISTRIBUTION WIDTH 16.5 % (11.5-15.0); WHITE BLOOD COUNT (AUTO) 3.9 K/uL (4.3-11.0)
[2024-08-18 20:53] LABS: APPEARANCE,URINE CLEAR (CLEAR); BILIRUBIN,URINE NEGATIVE (NEGATIVE); BLOOD, URINE NEGATIVE Ery/uL (NEGATIVE); COLOR,URINE YELLOW (YELLOW); KETONES,URINE NEGATIVE (NEGATIVE); LEUKOCYTE ESTERASE ,URINE TRACE (NEGATIVE); NITRITE, URINE POSITIVE (NEGATIVE); PROTEIN,URINE NEGATIVE (NEGATIVE); UGLUCOSE NEGATIVE (NEGATIVE); UROBILINOGEN,URINE 0.2 EU/dL (0.2)
[2024-08-18 20:58] LABS: CREATININE, URINE 40.4 MG/DL (30.0-125.0); URINE TOTAL PROTEIN 2.4 mg/dL (0-11.9)
[2024-08-18 21:31] LABS: ADD URINE CULTURE YES; BACTERIA,URINE 4+ /HPF (None Seen); RBC,URINE NONE SEEN /HPF (0-2); WBC,URINE 21-50 /HPF (0-3)
[2024-08-18 22:08] LABS: EOSINOPHIL,URINE None Seen
[2024-08-19] VITALS (9 sets, daily range): BP systolic 108–159; BP diastolic 55–90; TEMP 97.2–98.5; O2SAT 90–96
[2024-08-19 08:41] LABS: BASOPHILS % (AUTO) 0.7 % (0.0-2.0); EOSINOPHILS # (AUTO) 0.3 K/uL (0.0-0.7); EOSINOPHILS % (AUTO) 6.6 % (0.0-6.0); HEMATOCRIT 23 % (33-45); LYMPHOCYTES # (AUTO) 0.8 K/uL (0.8-4.8); MEAN CORPUSCULAR HEMOGLOBIN 22 PG (26.0-33.0); MEAN CORPUSCULAR HGB CONC 31 g/dl (31.0-36.0); MEAN CORPUSCULAR VOLUME 70 fL (82-100); MONOCYTES # (AUTO) 0.4 K/uL (0.1-1.30); MONOCYTES % (AUTO) 11.1 % (2.0-12.0); NEUTROPHILS # (AUTO) 2.5 K/uL (1.8-8.9); NEUTROPHILS % (AUTO) 62.6 % (43.0-81.0); PLATELET COUNT (AUTO) 127 K/uL (150-450); RED BLOOD CELL COUNT(AUTO) 3.21 MIL/uL (4.0-5.2); RED CELL DISTRIBUTION WIDTH 16.7 % (11.5-15.0)
[2024-08-19 08:42] LABS: CALCIUM, SERUM 8.6 mg/dL (8.5-10.1); CARBON DIOXIDE 27 mmol/L (21-32); CHLORIDE 107 mmol/L (98-107); GLUCOSE 123 mg/dL (74-106); POTASSIUM 3.9 mmol/L (3.5-5.1); SODIUM SERUM 142 mmol/L (136-145); UREA NITROGEN, BLOOD 17 mg/dL (7-18)
[2024-08-19 09:11] LABS: ANISOCYTOSIS 1+; BASOPHILS % (MANUAL) 0 % (0.0-2.0); EOSINOPHILS % (MANUAL) 8 % (0-4); HYPOCHROMASIA 1+; LYMPHOCYTES % (MANUAL) 17 % (16-48); MONOCYTES % (MANUAL) 20 % (0-11.0); NEUTROPHILS % (MANUAL) 65 (42-76); OVALOCYTES 1+; PLATELET ESTIMATE DECREASED
[2024-08-19] MEDS: ONDANSETRON HCL/PF 4 MG/2 ML VIAL IV PRN (14:41)
[2024-08-19 21:21] LABS: HEMOGLOBIN 8.5 g/dL (11.5-14.8)
[2024-08-19] MEDS: GABAPENTIN 400 MG CAPSULE PO ONE (21:45)
[2024-08-19 23:41] LABS: BASOPHILS % (AUTO) 0.4 % (0.0-2.0); EOSINOPHILS # (AUTO) 0.3 K/uL (0.0-0.7); EOSINOPHILS % (AUTO) 4.8 % (0.0-6.0); HEMATOCRIT 28 % (33-45); HEMOGLOBIN 8.8 g/dL (11.5-14.8); LYMPHOCYTES # (AUTO) 0.5 K/uL (0.8-4.8); LYMPHOCYTES % (AUTO) 8.5 % (20.0-44.0); MEAN CORPUSCULAR HEMOGLOBIN 24 PG (26.0-33.0); MEAN CORPUSCULAR HGB CONC 32 g/dl (31.0-36.0); MEAN CORPUSCULAR VOLUME 74 fL (82-100); MONOCYTES # (AUTO) 0.3 K/uL (0.1-1.30); MONOCYTES % (AUTO) 6.1 % (2.0-12.0); NEUTROPHILS # (AUTO) 4.4 K/uL (1.8-8.9); NEUTROPHILS % (AUTO) 80.2 % (43.0-81.0); PLATELET COUNT (AUTO) 113 K/uL (150-450); RED BLOOD CELL COUNT(AUTO) 3.73 MIL/uL (4.0-5.2); RED CELL DISTRIBUTION WIDTH 18.8 % (11.5-15.0); WHITE BLOOD COUNT (AUTO) 5.5 K/uL (4.3-11.0)
[2024-08-20 04:00] VITALS: BP 115/56; TEMP 97.5; O2SAT 97
[2024-08-20 07:54] LABS: CALCIUM, SERUM 8.7 mg/dL (8.5-10.1); CARBON DIOXIDE 23 mmol/L (21-32); CHLORIDE 110 mmol/L (98-107); CREATININE 0.9 mg/dL (0.6-1.3); GLUCOSE 111 mg/dL (74-106); POTASSIUM 3.9 mmol/L (3.5-5.1); SODIUM SERUM 144 mmol/L (136-145); UREA NITROGEN, BLOOD 11 mg/dL (7-18)
[2024-08-20 07:56] LABS: BASOPHILS % (AUTO) 0.5 % (0.0-2.0); EOSINOPHILS # (AUTO) 0.2 K/uL (0.0-0.7); EOSINOPHILS % (AUTO) 5.2 % (0.0-6.0); HEMATOCRIT 27 % (33-45); HEMOGLOBIN 8.6 g/dL (11.5-14.8); LYMPHOCYTES # (AUTO) 0.7 K/uL (0.8-4.8); LYMPHOCYTES % (AUTO) 14.8 % (20.0-44.0); MEAN CORPUSCULAR HEMOGLOBIN 24 PG (26.0-33.0); MEAN CORPUSCULAR HGB CONC 32 g/dl (31.0-36.0); MEAN CORPUSCULAR VOLUME 75 fL (82-100); MONOCYTES # (AUTO) 0.4 K/uL (0.1-1.30); MONOCYTES % (AUTO) 8.9 % (2.0-12.0); NEUTROPHILS # (AUTO) 3.4 K/uL (1.8-8.9); NEUTROPHILS % (AUTO) 70.6 % (43.0-81.0); PLATELET COUNT (AUTO) 123 K/uL (150-450); RED BLOOD CELL COUNT(AUTO) 3.67 MIL/uL (4.0-5.2); RED CELL DISTRIBUTION WIDTH 18.4 % (11.5-15.0); WHITE BLOOD COUNT (AUTO) 4.8 K/uL (4.3-11.0)
[2024-08-20 08:00] VITALS: BP 131/74; TEMP 98.1; O2SAT 95
[2024-08-20 09:34] LABS: BASOPHILS % (MANUAL) 0 % (0.0-2.0); EOSINOPHILS % (MANUAL) 5 % (0-4); LYMPHOCYTES % (MANUAL) 18 % (16-48); MONOCYTES % (MANUAL) 7 % (0-11.0); NEUTROPHILS % (MANUAL) 70 (42-76); PLATELET ESTIMATE DECREASED
[2024-08-20] MEDS: ENOXAPARIN SODIUM 80 MG/0.8 ML DISP.SYRIN SQ SCH (10:21)
[2024-08-20 16:00] VITALS: BP 130/62; TEMP 97.5; O2SAT 96
[2024-08-20 18:00] VITALS: BP 130/62; TEMP 97.5; O2SAT 96
[2024-08-20 20:00] VITALS: BP 127/64; TEMP 97.9; O2SAT 97
[2024-08-20] MEDS: IV NS 0.9% 1,000 ML IV PRN (23:51)
[2024-08-21 04:00] VITALS: BP 141/73; TEMP 97.5; O2SAT 97
[2024-08-21 07:59] LABS: EOSINOPHILS # (AUTO) 0.2 K/uL (0.0-0.7); EOSINOPHILS % (AUTO) 5.5 % (0.0-6.0); HEMATOCRIT 26 % (33-45); HEMOGLOBIN 8.1 g/dL (11.5-14.8); MEAN CORPUSCULAR HEMOGLOBIN 23 PG (26.0-33.0); MEAN CORPUSCULAR HGB CONC 31 g/dl (31.0-36.0); MEAN CORPUSCULAR VOLUME 75 fL (82-100); MONOCYTES # (AUTO) 0.4 K/uL (0.1-1.30); MONOCYTES % (AUTO) 8.4 % (2.0-12.0); NEUTROPHILS # (AUTO) 2.6 K/uL (1.8-8.9); NEUTROPHILS % (AUTO) 62.1 % (43.0-81.0); PLATELET COUNT (AUTO) 113 K/uL (150-450); RED BLOOD CELL COUNT(AUTO) 3.49 MIL/uL (4.0-5.2); RED CELL DISTRIBUTION WIDTH 18.8 % (11.5-15.0); WHITE BLOOD COUNT (AUTO) 4.2 K/uL (4.3-11.0)
[2024-08-21 08:00] VITALS: BP 121/60; TEMP 97.7; O2SAT 98
[2024-08-21 08:05] LABS: CALCIUM, SERUM 8.1 mg/dL (8.5-10.1); CARBON DIOXIDE 26 mmol/L (21-32); CHLORIDE 113 mmol/L (98-107); CREATININE 1.2 mg/dL (0.6-1.3); GLUCOSE 96 mg/dL (74-106); POTASSIUM 3.5 mmol/L (3.5-5.1); SODIUM SERUM 147 mmol/L (136-145); UREA NITROGEN, BLOOD 5 mg/dL (7-18)
[2024-08-21 08:17] LABS: INR 1.08 (0.91-1.10); PARTIAL THROMBOPLASTIN TIME 27.3 SEC (24.3-34.3); PROTHROMBIN TIME 11.4 SECS (9.2-11.1)
[2024-08-21 08:37] LABS: ANISOCYTOSIS 1+
[2024-08-21 08:38] LABS: HYPOCHROMASIA 1+; OVALOCYTES 1+
[2024-08-21 08:52] LABS: IRON, SERUM 12 ug/dl (50-175); TOTAL IRON BINDING CAPACITY 337 ug/dl (250-450)
[2024-08-21 08:59] LABS: FERRITIN 8 ng/mL (8-388)
[2024-08-21] MEDS: CEFTRIAXONE 1 G in IV D5W 50 ML IV SCH (09:18)
[2024-08-21] MEDS ORDERED: BUPIVACAINE 0.5 % PF 150 MG/30 ML VIAL ONE (12:24)
[2024-08-21] MEDS ORDERED: LIDOCAINE 1%-EPI 1:100,000 20 ML VIAL ONE (12:24)
[2024-08-21] MEDS ORDERED: GABAPENTIN 100 MG CAPSULE PO SCH (15:00)
[2024-08-21] MEDS: GABAPENTIN 100 MG CAPSULE PO SCH (15:26)
[2024-08-21] MEDS: ACETAMINOPHEN 325 MG TABLET PO SCH (15:26)
[2024-08-21] MEDS: CELECOXIB 100 MG CAPSULE PO SCH (15:26)
[2024-08-21 16:00] VITALS: BP 139/71; TEMP 97.7; O2SAT 99
[2024-08-21 17:00] VITALS: BP 130/62; TEMP 97.5; O2SAT 96
[2024-08-21] MEDS ORDERED: GABAPENTIN 400 MG CAPSULE PO SCH (17:00)
[2024-08-21] MEDS: IV NS 0.9% 1,000 ML IV PRN (17:16)
[2024-08-21 20:00] VITALS: BP 129/70; TEMP 97.6; O2SAT 96
[2024-08-22 04:00] VITALS: BP 124/66; TEMP 97.9; O2SAT 96
[2024-08-22 08:00] VITALS: BP 125/71; TEMP 97.9; O2SAT 97
[2024-08-22] MEDS: GABAPENTIN 300 MG CAPSULE PO ONE (08:14)
[2024-08-22 10:46] LABS: BASOPHILS % (AUTO) 0.5 % (0.0-2.0); EOSINOPHILS # (AUTO) 0.1 K/uL (0.0-0.7); EOSINOPHILS % (AUTO) 2.3 % (0.0-6.0); HEMATOCRIT 24 % (33-45); HEMOGLOBIN 7.5 g/dL (11.5-14.8); LYMPHOCYTES # (AUTO) 0.7 K/uL (0.8-4.8); LYMPHOCYTES % (AUTO) 11.9 % (20.0-44.0); MEAN CORPUSCULAR HEMOGLOBIN 23 PG (26.0-33.0); MEAN CORPUSCULAR HGB CONC 32 g/dl (31.0-36.0); MEAN CORPUSCULAR VOLUME 74 fL (82-100); MONOCYTES # (AUTO) 0.4 K/uL (0.1-1.30); MONOCYTES % (AUTO) 7.6 % (2.0-12.0); NEUTROPHILS # (AUTO) 4.6 K/uL (1.8-8.9); NEUTROPHILS % (AUTO) 77.7 % (43.0-81.0); PLATELET COUNT (AUTO) 99 K/uL (150-450); RED BLOOD CELL COUNT(AUTO) 3.24 MIL/uL (4.0-5.2); RED CELL DISTRIBUTION WIDTH 18.9 % (11.5-15.0); WHITE BLOOD COUNT (AUTO) 5.9 K/uL (4.3-11.0)
[2024-08-22 10:47] LABS: ALANINE AMINOTRANSFERASE 15 U/L (12-78); ALKALINE PHOSPHATASE 59 U/L (46-116); ASPARTATE AMINOTRANSFERASE 10 U/L (15-37); BILIRUBIN,TOTAL 0.4 mg/dL (0.2-1.0); CARBON DIOXIDE 26 mmol/L (21-32); CHLORIDE 111 mmol/L (98-107); CREATININE 1.1 mg/dL (0.6-1.3); GLUCOSE 139 mg/dL (74-106); POTASSIUM 3.2 mmol/L (3.5-5.1); SODIUM SERUM 145 mmol/L (136-145); TOTAL PROTEIN, SERUM 5.6 g/dL (6.4-8.2); UREA NITROGEN, BLOOD 6 mg/dL (7-18)
[2024-08-22] MEDS: POTASSIUM CHLORIDE 20 MEQ TAB.PRT.SR PO SCH (11:48)
[2024-08-22 13:35] LABS: ANISOCYTOSIS 1+; BASOPHILS % (MANUAL) 0 % (0.0-2.0); EOSINOPHILS % (MANUAL) 3 % (0-4); HYPOCHROMASIA 1+; LYMPHOCYTES % (MANUAL) 10 % (16-48); MONOCYTES % (MANUAL) 8 % (0-11.0); NEUTROPHILS % (MANUAL) 79 (42-76); OVALOCYTES 1+; PLATELET ESTIMATE DECREASED
[2024-08-22 16:00] VITALS: BP 134/56; TEMP 98; O2SAT 98
[2024-08-22 20:00] VITALS: BP 111/80; TEMP 98.2; O2SAT 100
[2024-08-22] MEDS: GABAPENTIN 400 MG CAPSULE PO SCH (20:01)
[2024-08-22 21:07] LABS: HEMOGLOBIN 7.6 g/dL (11.5-14.8)
[2024-08-23 04:00] VITALS: BP 101/69; TEMP 98.8; O2SAT 96
[2024-08-23 07:25] LABS: BASOPHILS # (AUTO) 0.1 K/uL (0.0-0.2); BASOPHILS % (AUTO) 1.2 % (0.0-2.0); EOSINOPHILS # (AUTO) 0.2 K/uL (0.0-0.7); EOSINOPHILS % (AUTO) 4.3 % (0.0-6.0); HEMATOCRIT 26 % (33-45); HEMOGLOBIN 8.3 g/dL (11.5-14.8); LYMPHOCYTES # (AUTO) 0.7 K/uL (0.8-4.8); MEAN CORPUSCULAR HEMOGLOBIN 23 PG (26.0-33.0); MEAN CORPUSCULAR HGB CONC 31 g/dl (31.0-36.0); MEAN CORPUSCULAR VOLUME 74 fL (82-100); MONOCYTES # (AUTO) 0.3 K/uL (0.1-1.30); MONOCYTES % (AUTO) 7.1 % (2.0-12.0); NEUTROPHILS # (AUTO) 3.1 K/uL (1.8-8.9); NEUTROPHILS % (AUTO) 71.4 % (43.0-81.0); PLATELET COUNT (AUTO) 116 K/uL (150-450); RED BLOOD CELL COUNT(AUTO) 3.59 MIL/uL (4.0-5.2); WHITE BLOOD COUNT (AUTO) 4.4 K/uL (4.3-11.0)
[2024-08-23 07:38] LABS: CALCIUM, SERUM 8.7 mg/dL (8.5-10.1); CARBON DIOXIDE 27 mmol/L (21-32); CHLORIDE 111 mmol/L (98-107); CREATININE 1.2 mg/dL (0.6-1.3); GLUCOSE 116 mg/dL (74-106); MAGNESIUM 1.3 mg/dL (1.8-2.4); PHOSPHORUS 3.8 mg/dL (2.5-4.9); POTASSIUM 3.7 mmol/L (3.5-5.1); SODIUM SERUM 147 mmol/L (136-145); UREA NITROGEN, BLOOD 6 mg/dL (7-18)
[2024-08-23 08:00] VITALS: BP 122/66; TEMP 98.1; O2SAT 95
[2024-08-23 08:03] LABS: ANISOCYTOSIS 1+
[2024-08-23 08:04] LABS: OVALOCYTES 1+
[2024-08-23] MEDS ORDERED: ENOXAPARIN SODIUM 80 MG/0.8 ML DISP.SYRIN SQ SCH ×2 (09:00)
[2024-08-23] MEDS: MAGNESIUM OXIDE 400 MG TABLET PO ONE (09:52)
[2024-08-23] MEDS ORDERED: ATOR40TA PO (09:53)
[2024-08-23] MEDS ORDERED: AMOX-430 PO (09:53)
[2024-08-23] MEDS ORDERED: APIX5TAB PO (09:53)
[2024-08-23] MEDS ORDERED: PANT40TA2 PO (09:53)
== END 2024-08-23 16:55 | disposition home health service (06) | DRG 347 ==
LOC: ER 13:59 → MEDSG1 18:10
PROVIDERS: ADMIT Nurse Practitioner Acute Care; ATTEND Internal Medicine
PROC: 30233N1 Transfusion of Nonautologous Red Blood Cells into Peripheral Vein, Percutaneous Approach (ICD-10-PCS; principal; 2024-08-19)
PROC: 06BY0ZC Excision of Hemorrhoidal Plexus, Open Approach (ICD-10-PCS; 2024-08-21)
DX: K64.8 Other hemorrhoids (principal); N17.0 Acute kidney failure with tubular necrosis; D62 Acute posthemorrhagic anemia; N39.0 Urinary tract infection, site not specified; I12.9 Hypertensive chronic kidney disease with stage 1 through stage 4 chronic kidney disease, or unspecified chronic kidney disease; N18.9 Chronic kidney disease, unspecified; E11.22 Type 2 diabetes mellitus with diabetic chronic kidney disease; E78.5 Hyperlipidemia, unspecified; K21.9 Gastro-esophageal reflux disease without esophagitis; M79.7 Fibromyalgia; Z79.01 Long term (current) use of anticoagulants; Z79.84 Long term (current) use of oral hypoglycemic drugs; Z88.2 Allergy status to sulfonamides; M89.8X9 Other specified disorders of bone, unspecified site; B96.1 Klebsiella pneumoniae [K. pneumoniae] as the cause of diseases classified elsewhere; Z86.711 Personal history of pulmonary embolism; Z86.718 Personal history of other venous thrombosis and embolism; K58.9 Irritable bowel syndrome, unspecified
CPT/HCPCS: 36415; 71045-TC; 80048-TC; 80053-TC; 80076-TC; 81001; 82272-TC; 82570-TC; 82728-TC; 82962-TC; 83540-TC; 83735-TC; 84100-TC; 84300-TC; 85025-TC; 85027-TC; 85610-TC; 85730-TC; 86850-TC; 87086-TC; 88304-TC; 93970-TC; 97112-TC; 97116-TC; 97530-TC; A4223; A6402; A6403; G0378; J0461; J0696; J1650; J1815; J2405; J2470; J3490; J7030; J7060; P9016

== ENCOUNTER 2025-06-28 17:09 | Inpatient (IN) | payer MEDICARE, BC ==
[~2025-06-28] VITALS: Ht 167.6 cm; Wt 72.1 kg
[~2025-06-28 17:09] MED LIST changes: +AMOX-430 PO; -APIX5TAB4 PO; +PANT40TA2 PO
[2025-06-28] MEDS ORDERED: APIX2.5T PO (17:58)
[2025-06-28] MEDS ORDERED: ATOR40TA PO (17:58)
[2025-06-28] MEDS: ACETAMINOPHEN ES 500 MG TABLET PO ONE (18:00)
[2025-06-28] MEDS ORDERED: ACETAMINOPHEN ES 500 MG TABLET ONE (18:02)
[2025-06-28 18:18] LABS: PLATELET COUNT (AUTO) 175 K/uL (150-450); RED BLOOD CELL COUNT(AUTO) 4.90 MIL/uL (4.0-5.2); RED CELL DISTRIBUTION WIDTH 12.6 % (11.5-15.0); WHITE BLOOD COUNT (AUTO) 7.9 K/uL (4.3-11.0)
[2025-06-28 18:23] LABS: CALCIUM, SERUM 9.8 mg/dL (8.5-10.1); CREATININE 1.3 mg/dL (0.6-1.3); SODIUM SERUM 134 mmol/L (136-145); UREA NITROGEN, BLOOD 22 mg/dL (7-18)
[2025-06-28 18:29] LABS: ASPARTATE AMINOTRANSFERASE 27 U/L (15-37); TOTAL PROTEIN, SERUM 8.0 g/dL (6.4-8.2)
[2025-06-28 18:33] LABS: INR 1.07 (0.91-1.10)
[2025-06-28 18:34] LABS: LACTIC ACID 2.1 mmol/L (0.4-2.0)
[2025-06-28] MEDS ORDERED: CEFTRIAXONE 1GM BAG (ER ONLY) 50 ML IV ONE (19:45)
[2025-06-28] MEDS: CEFTRIAXONE 1GM BAG (ER ONLY) 1 GM/50 ML PIGGYBACK IV ONE (20:00)
[2025-06-28] MEDS ORDERED: NTG 50 MG/D5W250 ML BOTTL 250 ML IV ONE (20:19)
[2025-06-28] MEDS: NTG 50 MG/D5W250 ML BOTTL 250 ML IV PRN (20:27)
[2025-06-28] MEDS ORDERED: AZITHROMYCIN 500 MG VIAL ONE (20:43)
[2025-06-28] MEDS: AZITHROMYCIN 500 MG in IV D5W 250 ML IV ONE (20:50)
[2025-06-28 22:31] LABS: ABG BASE EXCESS -3.7 mmol/L (-2.0-3.0); ABG OXYGEN SATURATION 96.0 % (94.0-98.0); ABG PCO2 35.1 mmHg (32.0-45.0); ABG PH 7.385 (7.350-7.450); ABG PO2 84.7 mmHg (83.0-108.0); ABG TOTAL HEMOGLOBIN 14.9 G/dL (12.0-16.0); SET RATE, BG 18.0; SITE, ABG RIGHT RADIAL
[2025-06-28] MEDS ORDERED: MAGNESIUM HYDROXIDE 30 ML UDC PO PRN (23:00)
[2025-06-28] MEDS ORDERED: MAG HYDROX/AL HYDROX/SIMETH 30 ML UDC PO PRN (23:00)
[2025-06-28] MEDS ORDERED: ONDANSETRON HCL/PF 4 MG/2 ML VIAL IVP PRN (23:00)
[2025-06-28] MEDS: ENOXAPARIN SODIUM 40 MG/0.4 ML DISP.SYRIN SQ SCH (23:00)
[2025-06-28] MEDS ORDERED: Z GUARD REMEDY 4 OZ OINT TP PRN (23:00)
[2025-06-28] MEDS ORDERED: ACETAMINOPHEN 325 MG TABLET PO PRN (23:00)
[2025-06-28] MEDS ORDERED: ENOXAPARIN SODIUM 40 MG/0.4 ML DISP.SYRIN SQ ONE (23:58)
[2025-06-28] MEDS ORDERED: dexaMETHasone SOD PHOSPHATE 1 ML ONE (23:58)
[2025-06-29] VITALS (64 sets, daily range): BP systolic 102–174; BP diastolic 32–148; TEMP 97–98.6; O2SAT 89–100
[2025-06-29] MEDS ORDERED: DEXTROSE 50%-WATER 50 ML DISP.SYRIN IV PRN
[2025-06-29] MEDS: dexaMETHasone SOD PHOSPHATE 4 MG/ML VIAL IV ONE (00:01)
[2025-06-29 06:02] LABS: PLATELET COUNT (AUTO) 162 K/uL (150-450); RED BLOOD CELL COUNT(AUTO) 4.52 MIL/uL (4.0-5.2); RED CELL DISTRIBUTION WIDTH 13.0 % (11.5-15.0); WHITE BLOOD COUNT (AUTO) 6.9 K/uL (4.3-11.0)
[2025-06-29 06:13] LABS: CALCIUM, SERUM 9.1 mg/dL (8.5-10.1); CREATININE 1.1 mg/dL (0.6-1.3); PHOSPHORUS 3.0 mg/dL (2.5-4.9); SODIUM SERUM 134.0 mmol/L (136-145); UREA NITROGEN, BLOOD 25.0 mg/dL (7-18)
[2025-06-29] MEDS: NTG 50 MG/D5W250 ML BOTTL 250 ML IV PRN (08:57)
[2025-06-29] MEDS: BLOOD SUGAR DIAGNOSTIC 1 EACH STRIP VI SCH (09:29)
[2025-06-29] MEDS: DOXYCYCLINE 100 MG in IV D5W 100 ML IV SCH (09:31)
[2025-06-29] MEDS: ENOXAPARIN SODIUM 80 MG/0.8 ML DISP.SYRIN SQ SCH (09:32)
[2025-06-29] MEDS: PANTOPRAZOLE 40 MG VIAL IV SCH (09:33)
[2025-06-29] MEDS: INSULIN REGULAR, HUMAN 100 UNIT/ML 3 ML VIAL SQ PRN (09:36)
[2025-06-29] MEDS: REMDESIVIR (CHARGED) 200 MG, *LOADING DOSE 1 EA in IV NS 0.9% 210 ML IV ONE (14:05)
[2025-06-29] MEDS ORDERED: AZITHROMYCIN 500 MG in IV D5W 250 ML IV SCH (20:00)
[2025-06-29] MEDS: CEFTRIAXONE 1 G in IV D5W 50 ML IV SCH (20:17)
[2025-06-29] MEDS: *INSULIN REGULAR(HUMULIN R)HUM 100 UNIT/ML VIAL SQ PRN (22:57)
[2025-06-30] VITALS (62 sets, daily range): BP systolic 108–165; BP diastolic 39–100; TEMP 97.4–98.5; O2SAT 94–99
[2025-06-30 04:39] LABS: PLATELET COUNT (AUTO) 175 K/uL (150-450); RED BLOOD CELL COUNT(AUTO) 4.28 MIL/uL (4.0-5.2); RED CELL DISTRIBUTION WIDTH 13.0 % (11.5-15.0); WHITE BLOOD COUNT (AUTO) 4.9 K/uL (4.3-11.0)
[2025-06-30 04:50] LABS: INR 1.09 (0.91-1.10)
[2025-06-30 04:52] LABS: ASPARTATE AMINOTRANSFERASE 24.0 U/L (15-37); CALCIUM, SERUM 9.1 mg/dL (8.5-10.1); CREATININE 1.1 mg/dL (0.6-1.3); PHOSPHORUS 2.9 mg/dL (2.5-4.9); SODIUM SERUM 138.0 mmol/L (136-145); TOTAL PROTEIN, SERUM 6.6 g/dL (6.4-8.2); UREA NITROGEN, BLOOD 21.0 mg/dL (7-18)
[2025-06-30 07:45] LABS: ABG BASE EXCESS 1.0 mmol/L (-2.0-3.0); ABG OXYGEN SATURATION 96.5 % (94.0-98.0); ABG PCO2 36.5 mmHg (32.0-45.0); ABG PH 7.449 (7.350-7.450); ABG PO2 85.9 mmHg (83.0-108.0); ABG TOTAL HEMOGLOBIN 13.4 G/dL (12.0-16.0); FLOW, BLOOD GAS 30.00 L/min (0.00-30.00); SITE, ABG RIGHT RADIAL
[2025-06-30] MEDS: dexaMETHasone SOD PHOSPHATE 10 MG/ML VIAL IV SCH (08:47)
[2025-06-30] MEDS: POTASSIUM CHLORIDE 20 MEQ TAB.PRT.SR PO SCH (10:00)
[2025-06-30] MEDS: VALSARTAN 80 MG TABLET PO SCH (11:00)
[2025-06-30] MEDS: PANTOPRAZOLE 40 MG TABLET.DR PO SCH (11:00)
[2025-06-30] MEDS: REMDESIVIR (CHARGED) 100 MG in IV NS 0.9% 80 ML IV SCH (14:38)
[2025-06-30] MEDS: GABAPENTIN 400 MG CAPSULE PO SCH (17:15)
[2025-06-30] MEDS: SERTRALINE HCL 50 MG TABLET PO SCH (21:40)
[2025-07-01] VITALS (14 sets, daily range): BP systolic 103–146; BP diastolic 47–79; TEMP 97.2–97.8; O2SAT 95–99
[2025-07-01 05:08] LABS: PLATELET COUNT (AUTO) 198 K/uL (150-450); RED BLOOD CELL COUNT(AUTO) 4.28 MIL/uL (4.0-5.2); RED CELL DISTRIBUTION WIDTH 13.0 % (11.5-15.0); WHITE BLOOD COUNT (AUTO) 5.0 K/uL (4.3-11.0)
[2025-07-01 05:21] LABS: INR 1.08 (0.91-1.10)
[2025-07-01 05:22] LABS: ASPARTATE AMINOTRANSFERASE 19.0 U/L (15-37); CALCIUM, SERUM 9.5 mg/dL (8.5-10.1); CREATININE 1.1 mg/dL (0.6-1.3); PHOSPHORUS 3.7 mg/dL (2.5-4.9); SODIUM SERUM 137.0 mmol/L (136-145); TOTAL PROTEIN, SERUM 6.6 g/dL (6.4-8.2); UREA NITROGEN, BLOOD 32.0 mg/dL (7-18)
[2025-07-01] MEDS: ATORVASTATIN 40 MG TABLET PO SCH (09:13)
[2025-07-01] MEDS: ENOXAPARIN SODIUM 40 MG/0.4 ML DISP.SYRIN SQ SCH (09:16)
[2025-07-01] MEDS: DOXYCYCLINE HYCLATE (100 MG) 100 MG TABLET PO SCH (21:23)
[2025-07-02] VITALS: BP 137/58; TEMP 97.5; O2SAT 98
[2025-07-02 04:00] VITALS: BP 137/59; TEMP 97.8; O2SAT 94
[2025-07-02 07:35] LABS: PLATELET COUNT (AUTO) 246 K/uL (150-450); RED BLOOD CELL COUNT(AUTO) 4.59 MIL/uL (4.0-5.2); RED CELL DISTRIBUTION WIDTH 12.8 % (11.5-15.0); WHITE BLOOD COUNT (AUTO) 9.1 K/uL (4.3-11.0)
[2025-07-02 07:58] LABS: ASPARTATE AMINOTRANSFERASE 14.0 U/L (15-37); CALCIUM, SERUM 9.6 mg/dL (8.5-10.1); CREATININE 1.2 mg/dL (0.6-1.3); PHOSPHORUS 4.5 mg/dL (2.5-4.9); SODIUM SERUM 139.0 mmol/L (136-145); TOTAL PROTEIN, SERUM 6.9 g/dL (6.4-8.2); UREA NITROGEN, BLOOD 36.0 mg/dL (7-18)
[2025-07-02 08:00] VITALS: BP 145/65; TEMP 97.5; O2SAT 96
[2025-07-02 08:16] LABS: INR 1.11 (0.91-1.10)
[2025-07-02] MEDS: GLUCERNA SHAKE 237 ML CAN PO SCH (08:20)
[2025-07-02 12:00] VITALS: BP 118/56; TEMP 97.5; O2SAT 95
[2025-07-02 16:00] VITALS: BP 128/50; TEMP 97.5; O2SAT 97
[2025-07-02] MEDS: APIXABAN 5 MG TABLET PO SCH (17:26)
[2025-07-02 20:00] VITALS: BP 122/60; TEMP 97.5; O2SAT 97
[2025-07-03] VITALS: BP 122/51; TEMP 98.9; O2SAT 98
[2025-07-03 04:00] VITALS: BP 120/65; TEMP 98; O2SAT 98
[2025-07-03 07:59] LABS: INR 1.19 (0.91-1.10)
[2025-07-03 08:00] VITALS: BP 134/63; TEMP 97.5; O2SAT 92
[2025-07-03] MEDS ORDERED: APIX5TAB PO ×2 (08:25→12:07)
[2025-07-03] MEDS ORDERED: DOXY100T2 PO (08:25)
[2025-07-03] MEDS ORDERED: VALS80TA31 PO (08:25)
[2025-07-03] MEDS ORDERED: DEXA4TAB PO (08:25)
[2025-07-03 10:44] LABS: ASPARTATE AMINOTRANSFERASE 22.0 U/L (15-37); TOTAL PROTEIN, SERUM 6.5 g/dL (6.4-8.2)
[2025-07-03 11:31] VITALS: O2SAT 98
[2025-07-03 11:39] LABS: ABG BASE EXCESS -4.1 mmol/L (-2.0-3.0); ABG OXYGEN SATURATION 90.8 % (94.0-98.0); ABG PCO2 31.3 mmHg (32.0-45.0); ABG PH 7.411 (7.350-7.450); ABG PO2 60.5 mmHg (83.0-108.0); ABG TOTAL HEMOGLOBIN 14.1 G/dL (12.0-16.0); FLOW, BLOOD GAS 6.00 L/min (0.00-30.00); FRACTIONATED INSPIRED OXYGEN 44.0 %; SITE, ABG LEFT RADIAL
[2025-07-03 16:00] VITALS: BP 109/41; TEMP 97.9; O2SAT 94
[2025-07-03 20:00] VITALS: BP 120/65; TEMP 98; O2SAT 98
[2025-07-04 04:00] VITALS: BP 130/70; TEMP 98; O2SAT 98
[2025-07-04 07:34] LABS: INR 1.12 (0.91-1.10)
[2025-07-04 07:43] LABS: ASPARTATE AMINOTRANSFERASE 12.0 U/L (15-37); TOTAL PROTEIN, SERUM 6.1 g/dL (6.4-8.2)
[2025-07-04 08:10] VITALS: BP 139/75; TEMP 97.9; O2SAT 96
[2025-07-04 16:00] VITALS: BP 130/64; TEMP 98.3; O2SAT 99
[2025-07-04 20:00] VITALS: BP 105/63; TEMP 98; O2SAT 97
[2025-07-05 04:00] VITALS: BP 126/64; TEMP 97.8; O2SAT 95
[2025-07-05 06:13] VITALS: BP 124/75; TEMP 98; O2SAT 98
[2025-07-05 08:00] VITALS: BP 112/68; TEMP 97.5; O2SAT 97
[2025-07-05 16:00] VITALS: BP 117/58; TEMP 97.3; O2SAT 97
[2025-07-05 20:00] VITALS: BP 120/63; TEMP 97.7; O2SAT 97
[2025-07-06 04:00] VITALS: BP 131/66; TEMP 97.5; O2SAT 94
[2025-07-06 08:00] VITALS: BP 120/55; TEMP 97.5; O2SAT 96
[2025-07-06 11:04] LABS: CALCIUM, SERUM 9.6 mg/dL (8.5-10.1); CREATININE 1.4 mg/dL (0.6-1.3); SODIUM SERUM 140.0 mmol/L (136-145); UREA NITROGEN, BLOOD 43.0 mg/dL (7-18)
[2025-07-06 16:00] VITALS: BP 115/62; TEMP 97.5; O2SAT 98
[2025-07-06 20:00] VITALS: BP 94/62; TEMP 97.5; O2SAT 96
[2025-07-07 04:00] VITALS: BP 112/66; TEMP 97.5; O2SAT 98
[2025-07-07 08:00] VITALS: BP 125/63; TEMP 98.3; O2SAT 96
[2025-07-07 08:43] VITALS: BP 125/63
[2025-07-07] MEDS ORDERED: DEXA4TAB PO (12:22)
[2025-07-07 13:39] LABS: ABG BASE EXCESS -1.2 mmol/L (-2.0-3.0); ABG OXYGEN SATURATION 95.1 % (94.0-98.0); ABG PCO2 35.3 mmHg (32.0-45.0); ABG PH 7.425 (7.350-7.450); ABG PO2 78.5 mmHg (83.0-108.0); ABG TOTAL HEMOGLOBIN 14.3 G/dL (12.0-16.0); FLOW, BLOOD GAS 2.00 L/min (0.00-30.00); FRACTIONATED INSPIRED OXYGEN 28.0 %; SITE, ABG LEFT RADIAL
== END 2025-07-07 17:15 | DRG 871 ==
LOC: ER 17:51 → TELE IN 23:05 → ICU 06-29 07:35 → TELE1 07-01 10:33 → MEDSG1 07-03 09:55
PROVIDERS: ATTEND Nurse Practitioner Acute Care
PROC: 5A09357 Assistance with Respiratory Ventilation, Less than 24 Consecutive Hours, Continuous Positive Airway Pressure (ICD-10-PCS; 2025-06-28)
PROC: XW033E5 Introduction of Remdesivir Anti-infective into Peripheral Vein, Percutaneous Approach, New Technology Group 5 (ICD-10-PCS; principal; 2025-06-29)
DX: A41.89 Other specified sepsis (principal); J12.82 Pneumonia due to coronavirus disease 2019; J96.01 Acute respiratory failure with hypoxia; U07.1 COVID-19; E87.1 Hypo-osmolality and hyponatremia; I69.351 Hemiplegia and hemiparesis following cerebral infarction affecting right dominant side; N17.9 Acute kidney failure, unspecified; I16.0 Hypertensive urgency; I10 Essential (primary) hypertension; E11.9 Type 2 diabetes mellitus without complications; E78.5 Hyperlipidemia, unspecified; E86.0 Dehydration; M79.7 Fibromyalgia; Z79.01 Long term (current) use of anticoagulants; Z79.84 Long term (current) use of oral hypoglycemic drugs; Z86.711 Personal history of pulmonary embolism; Z87.891 Personal history of nicotine dependence; Z88.2 Allergy status to sulfonamides; R53.1 Weakness; L98.8 Other specified disorders of the skin and subcutaneous tissue; S00.01XA Abrasion of scalp, initial encounter; X58.XXXA Exposure to other specified factors, initial encounter; Y93.9 Activity, unspecified; Y92.009 Unspecified place in unspecified non-institutional (private) residence as the place of occurrence of the external cause; G89.29 Other chronic pain
CPT/HCPCS: 36415; 36600; 71045-TC; 80048-TC; 80076-TC; 82728-TC; 82803-TC; 82962-TC; 83605-TC; 83735-TC; 83880; 84100-TC; 84484-TC; 85025-TC; 85027-TC; 85378-TC; 85610-TC; 85730-TC; 86140-TC; 87040-TC; 87081-TC; 93307-TC; 93970-TC; 94660; 94799-TC; 97110-TC; 97116-TC; 97530-TC; 99082-TC; A4216; A4223; G0378; J0456; J0696; J1100; J1650; J1815; J2048; J2470; J3490; J7030; J7050; J7060; J7070